=== PATIENT | female | born 1985 | race Caucasian/White ===

== ENCOUNTER 2022-10-09 17:37 | Emergency (ER) | payer BC ==
[~2022-10-09] VITALS: Ht 165.1 cm; Wt 103.6 kg
[2022-10-09 17:45] VITALS: BP 139/68; PULSE 78; RESP 22; TEMP 98.7; O2SAT 100
[2022-10-09] MEDS ORDERED: ONDANSETRON 4 MG/2 ML VIAL IVP ONE ×3 (17:50→20:20)
[2022-10-09] MEDS ORDERED: MORPHINE SULFATE 4 MG/ML SYR IVP ONE ×2 (17:50→19:50)
[2022-10-09 18:31] LABS: BASOPHILS # (AUTO) 0.1 K/uL (0.00-0.22); BASOPHILS % (AUTO) 1.2 % (0.0-2.0); EOSINOPHILS # (AUTO) 0.1 K/uL (0-0.4); EOSINOPHILS % (AUTO) 0.9 % (0.0-4.0); HEMATOCRIT 36.4 % (36-48); LYMPHOCYTES # (AUTO) 3.8 K/uL (2.5-16.5); LYMPHOCYTES % (AUTO) 30.6 % (20.5-51.1); MEAN CORPUSCULAR HEMOGLOBIN 29 pg (27-31); MEAN CORPUSCULAR HGB CONC 33 g/dL (33-37); MEAN CORPUSCULAR VOLUME 88.3 fL (80-94); MONOCYTES # (AUTO) 0.8 K/uL (0.8-1.0); MONOCYTES % (AUTO) 6.3 % (1.7-9.3); NEUTROPHILS # (AUTO) 7.6 K/uL (1.8-7.7); PLATELET COUNT (AUTO) 388 K/uL (140-450); RED BLOOD CELL COUNT(AUTO) 4.12 MIL/uL (4.20-5.40); RED CELL DISTRIBUTION WIDTH 14.2 % (11.6-13.7); WHITE BLOOD COUNT (AUTO) 12.4 K/uL (4.8-10.8)
[2022-10-09 18:33] VITALS: TEMP 98.7
[2022-10-09 18:45] LABS: ALBUMIN 3.4 g/dL (3.4-5.0); ANION GAP 7.3 (8-16); CALCIUM 8.5 mg/dL (8.5-10.1); CARBON DIOXIDE 28.2 mmol/L (21-32); CREATININE 0.9 mg/dL (0.6-1.3); POTASSIUM 3.5 mmol/L (3.5-5.1); TOTAL BILIRUBIN 0.3 mg/dL (0.0-1.0); TOTAL PROTEIN, SERUM 7.8 g/dL (6.4-8.2)
[2022-10-09 18:50] LABS: LIPASE 140 U/L (73-393)
[2022-10-09 19:01] LABS: APPEARANCE,URINE CLEAR (CLEAR); BILIRUBIN,URINE NEGATIVE (NEGATIVE); BLOOD, URINE 1+ (NEGATIVE); COLOR,URINE YELLOW (YELLOW); LEUKOCYTE ESTERASE ,URINE NEGATIVE (NEGATIVE); NITRITE, URINE NEGATIVE (NEGATIVE); PROTEIN,URINE NEGATIVE (NEGATIVE); UGLUCOSE NEGATIVE (NEGATIVE); UROBILINOGEN,URINE 0.2 EU/dL (0.2 - 1)
[2022-10-09 19:33] LABS: BACTERIA,URINE FEW /HPF (None Seen); RBC,URINE 0-5 /HPF (0-5); SQUAMOUS EPITHELIAL CELL,UR None Seen /LPF (0-3 (FEW)); WBC,URINE NONE SEEN /HPF (0-5)
[2022-10-09 20:30] VITALS: O2SAT 100
[2022-10-09 21:05] VITALS: BP 110/68; PULSE 61; RESP 21; O2SAT 97
[2022-10-09] MEDS ORDERED: CYCLOBENZAPRINE 10 MG TAB PO ONE (21:40)
[2022-10-09] MEDS ORDERED: CYCL-711 PO (21:42)
== END 2022-10-09 21:52 | disposition home or self-care (01) ==
LOC: MED 17:37
DX: R10.9 Unspecified abdominal pain (principal); R07.9 Chest pain, unspecified; R03.0 Elevated blood-pressure reading, without diagnosis of hypertension; Z79.899 Other long term (current) drug therapy; Z98.84 Bariatric surgery status
CPT/HCPCS: 36415; 71045; 71275; 74174; 80053; 81001; 81025; 83690; 83880; 84484; 85025; 93005; 96374; 96375; 96376; 99285; J2270; J2405; Q9967